=== PATIENT | male | born 1975 | race Caucasian/White ===

== ENCOUNTER 2018-02-28 04:49 | Emergency (ER) | payer SELFPAY ==
[2018-02-28] MEDS ORDERED: MORPHINE 4 MG/ML SYR ONE (05:09)
[2018-02-28] MEDS ORDERED: ONDANSETRON 4 MG/2 ML VIAL ONE (05:09)
[2018-02-28] MEDS ORDERED: KETOROLAC 30 MG/ML INJ ONE (05:09)
[2018-02-28] MEDS ORDERED: NA CHLORIDE 0.9% 1,000 ML ONE (05:10)
[2018-02-28 05:21] LABS: Absolute Lymphocytes (CBC) 2.1 K/uL (0.7-4.9); Absolute Monocytes 0.9 K/uL (0.1-1.3); Absolute Neutrophil 5.9 K/uL (1.8-8.0); Basophils % 0.5 % (0-1.3); Lymphocytes % 22.8 % (15.3-44.8); MCH 30.9 pg (27.0-35.0); MCV 90.8 fL (80-100); MPV 9.7 fL (7.6-11.3); Monocytes % 9.9 % (3.3-12.3); RBC Red Blood Cell Count 4.96 M/uL (4.33-5.43)
[2018-02-28 05:33] LABS: Albumin 3.9 g/dL (3.4-5.0); Bilirubin Direct 0.1 mg/dL (0-0.2); Bilirubin Total 0.5 mg/dL (0.2-1.0); Potassium 4.4 mmol/L (3.5-5.1); Protein, Total 7.2 g/dL (6.4-8.2)
[2018-02-28] MEDS ORDERED: LISINOPRIL 20 MG TAB ONE (05:39)
[2018-02-28] MEDS ORDERED: TAMSULOSIN 0.4 MG SR CAP ONE (05:39)
--- NOTE | 2018-02-28 05:46 | ER ---
Nurse's Notes [facility] Name: Jesse Beatty Age: 43 yrs Sex: Male : 1975 Arrival Date: 02/28/2018 Time: 04:50 Bed 8 Private MD: Diagnosis: Hydronephrosis with renal and ureteral calculous obstruction;Essential (primary) hypertension;Unspecified kidney failure Presentation: 02/28 04:57 Presenting complaint: Patient states: that he is having right lower back pain that fc radiates around to right lower abd. Positive for nausea, and decreased urination. Denies any vomiting or diarrhea. Transition of care: patient was not received from another setting of care. Onset of symptoms was February 28, 2018 at 03:00. Risk Assessment: Do you want to hurt yourself or someone else? Patient reports no desire to harm self or others. Initial Sepsis Screen: Does the patient meet any 2 criteria? No. Patient's initial sepsis screen is negative. Does the patient have a suspected source of infection? No. Patient's initial sepsis screen is negative. Care prior to arrival: None. 04:57 Method Of Arrival: Ambulatory 04:57 Acuity: SENDY 3 fc Historical: - Allergies: 05:00 No Known Allergies; fc - Home Meds: 05:00 None [Active]; fc - PMHx: 05:00 Hypertension; Kidney stones; fc - PSHx: 05:00 None; fc - Immunization history:: Last tetanus immunization: unknown, Flu vaccine is not up to date. - Social history:: Smoking status: Patient uses tobacco products, chewing tobacco, Patient/guardian denies using alcohol, street drugs. - Ebola Screening: : Patient negative for fever greater than or equal to 101.5 degrees Fahrenheit, and additional compatible Ebola Virus Disease symptoms Patient denies exposure to infectious person Patient denies travel to an Ebola-affected area in the 21 days before illness onset. - Family history:: not pertinent. Screenin:59 Abuse screen: Denies threats or abuse. Nutritional screening: No deficits noted. fc Tuberculosis screening: No symptoms or risk factors identified. Fall Risk None identified. Assessment: 05:10 General: Appears uncomfortable, Behavior is crying, restless. Pain: Complains of pain lp1 in right lower quadrant Pain radiates to groin Pain currently is 10 out of 10 on a pain scale. Quality of pain is described as sharp, stabbing. Neuro: Level of Consciousness is awake, alert, obeys commands. Cardiovascular: Patient's skin is warm and dry. Respiratory: Respiratory effort is even. GI: Abdomen is non-distended, Abdomen is tender to palpation in right lower quadrant. : Reports inability to void, pain with urination. EENT: No signs and/or symptoms were reported regarding the EENT system. Derm: Skin is intact, Skin is dry. Musculoskeletal: No deficits noted. 05:38 Reassessment: Patient returned from CT at this time; Patient states pain relief, lp1 comfortably lying in bed. 06:30 Reassessment: Patient appears in no apparent distress at this time. Patient is alert, lp1 oriented x 3, equal unlabored respirations, skin warm/dry/pink. Patient states feeling better. Patient states symptoms have improved. Vital Signs: 04:57 BP 206 / 118; Pulse 85; Resp 20; Temp 97.7(O); Pulse Ox 98% on R/A; Weight 81.65 kg fc (R); Height 5 ft. 8 in. (172.72 cm) (R); Pain 10/10; 05:36 BP 174 / 101; Pulse 62; Resp 18; Pulse Ox 97% on R/A; lp1 06:31 BP 158 / 102; Pulse 62; Resp 18; Pulse Ox 98% on R/A; lp1 04:57 Body Mass Index 27.37 (81.65 kg, 172.72 cm) fc ED Course: 04:50 Patient arrived in ED. es 04:57 Arm band placed on Patient placed in an exam room, on a stretcher. fc 04:58 Александр Ferro MD is Attending Physician. [facility] 04:59 Triage completed. fc 04:59 Patient has correct armband on for positive identification. Placed in gown. Bed in low fc position. Call light in reach. 05:00 Talia Issa, ROMA is Primary Nurse. lp1 05:00 Inserted saline lock: 20 gauge in right antecubital area, using aseptic technique. lp1 Blood collected. 05:[address] via stretcher. kw1 05:21 CT Stone Protocol In Process Unspecified. EDMS 05:23 CT completed. Patient tolerated procedure well. Patient moved back from CT. kw1 05:45 Rhonda Mahoney MD is Referral Physician. kosta 06:11 Patient moved to radiology via wheelchair. kw 06:12 X-ray completed. Patient tolerated procedure well. kw 06:30 No provider procedures requiring assistance completed. IV discontinued, No lp1 redness/swelling at site. Pressure dressing applied. Administered Medications: 05:09 Drug: NS 0.9% 1000 ml Route: IV; Rate: 1 bolus; Site: right antecubital; lp1 06:00 Follow up: IV Status: Completed infusion; IV Intake: 1000ml lp1 05:09 Drug: TORadol 30 mg Route: IVP; Site: right antecubital; lp1 05:36 Follow up: Response: Pain is decreased lp1 05:09 Drug: Zofran 4 mg Route: IVP; Site: right antecubital; lp1 05:36 Follow up: Response: No adverse reaction lp1 05:09 Drug: morphine 4 mg Route: IVP; Site: right antecubital; lp1 05:36 Follow up: Response: Pain is decreased lp1 05:36 Drug: Flomax 0.4 mg Route: PO; lp1 06:30 Follow up: Response: No adverse reaction lp1 05:36 Drug: Lisinopril 20 mg Route: PO; lp1 06:30 Follow up: Response: Blood pressure is lowered lp1 05:55 Drug: Rocephin - (cefTRIAXone) 1 grams Route: IVPB; Infused Over: 30 mins; Site: right lp1 antecubital; 06:29 Follow up: Response: No adverse reaction; IV Status: Completed infusion; IV Intake: [id number] Intake: 06:00 IV: 1000ml; Total: 1000ml. lp1 06:29 IV: 10ml; Total: 1010ml. lp1 Outcome: 05:45 Discharge ordered by . kosta 06:30 Discharged to home ambulatory, with significant other. lp1 06:30 Condition: good 06:30 Discharge instructions given to patient, significant other, Instructed on discharge instructions, follow up and referral plans. medication usage, Demonstrated understanding of instructions, follow-up care, medications, Prescriptions given X x5 06:31 Patient left the ED. lp1 Signatures: Dispatcher [employer] Александр Alvarenga MD MD cha Salyer, Edna es Chretien, Felicia, RN RN fc Elaine Oliva Laura, ROMA RN lp1 Stephania Eckert
--- NOTE | 2018-02-28 05:46 | EDPHYS ---
Physician Documentation [facility] Name: Jesse Beatty Age: 43 yrs Sex: Male : 1975 Arrival Date: 02/28/2018 Time: 04:50 Bed 8 Private MD: ED Physician Александр Ferro HPI: 02/28 05:08 This 43 yrs old Male presents to ER via Ambulatory with complaints of Back kosta Pain. 05:08 The patient presents with pain that is acute. The symptoms are located in the right mid kosta back and right low back. Onset: The symptoms/episode began/occurred just prior to arrival, this morning. The pain radiates to the right mid back and right low back. Associated signs and symptoms: Pertinent positives: abdominal pain, dysuria, nausea. The problem was sustained without known cause. Modifying factors: The patient symptoms are alleviated by nothing, the patient symptoms are aggravated by nothing. The patient has not experienced similar symptoms in the past. Historical: - Allergies: 05:00 No Known Allergies; fc - Home Meds: 05:00 None [Active]; fc - PMHx: 05:00 Hypertension; Kidney stones; fc - PSHx: 05:00 None; fc - Immunization history:: Last tetanus immunization: unknown, Flu vaccine is not up to date. - Social history:: Smoking status: Patient uses tobacco products, chewing tobacco, Patient/guardian denies using alcohol, street drugs. - Ebola Screening: : Patient negative for fever greater than or equal to 101.5 degrees Fahrenheit, and additional compatible Ebola Virus Disease symptoms Patient denies exposure to infectious person Patient denies travel to an Ebola-affected area in the 21 days before illness onset. - Family history:: not pertinent. ROS: 05:08 Constitutional: Negative for fever, chills, and weight loss, Eyes: Negative for injury, kosta pain, redness, and discharge, ENT: Negative for injury, pain, and discharge, Neck: Negative for injury, pain, and swelling, Cardiovascular: Negative for chest pain, palpitations, and edema, Respiratory: Negative for shortness of breath, cough, wheezing, and pleuritic chest pain, : Negative for injury, bleeding, discharge, and swelling, MS/Extremity: Negative for injury and deformity, Skin: Negative for injury, rash, and discoloration, Neuro: Negative for headache, weakness, numbness, tingling, and seizure, Psych: Negative for depression, anxiety, suicide ideation, homicidal ideation, and hallucinations, Allergy/Immunology: Negative for hives, rash, and allergies, Endocrine: Negative for neck swelling, polydipsia, polyuria, polyphagia, and marked weight changes, Hematologic/Lymphatic: Negative for swollen nodes, abnormal bleeding, and unusual bruising. 05:08 Abdomen/GI: Positive for abdominal pain, nausea. 05:08 Back: Positive for pain at rest, flank pain, on the right. Exam: 05:08 Constitutional: This is a well developed, well nourished patient who is awake, alert, kosta and in no acute distress. Head/Face: Normocephalic, atraumatic. Eyes: Pupils equal round and reactive to light, extra-ocular motions intact. Lids and lashes normal. Conjunctiva and sclera are non-icteric and not injected. Cornea within normal limits. Periorbital areas with no swelling, redness, or edema. ENT: Nares patent. No nasal discharge, no septal abnormalities noted. Tympanic membranes are normal and external auditory canals are clear. Oropharynx with no redness, swelling, or masses, exudates, or evidence of obstruction, uvula midline. Mucous membranes moist. Neck: Trachea midline, no thyromegaly or masses palpated, and no cervical lymphadenopathy. Supple, full range of motion without nuchal rigidity, or vertebral point tenderness. No Meningismus. Chest/axilla: Normal chest wall appearance and motion. Nontender with no deformity. No lesions are appreciated. Cardiovascular: Regular rate and rhythm with a normal S1 and S2. No gallops, murmurs, or rubs. Normal PMI, no JVD. No pulse deficits. Respiratory: Lungs have equal breath sounds bilaterally, clear to auscultation and percussion. No rales, rhonchi or wheezes noted. No increased work of breathing, no retractions or nasal flaring. Back: No spinal tenderness. No costovertebral tenderness. Full range of motion. Male : Normal genitalia with no discharge or lesions. Skin: Warm, dry with normal turgor. Normal color with no rashes, no lesions, and no evidence of cellulitis. MS/ Extremity: Pulses equal, no cyanosis. Neurovascular intact. Full, normal range of motion. Neuro: Awake and alert, GCS 15, oriented to person, place, time, and situation. Cranial nerves II-XII grossly intact. Motor strength 5/5 in all extremities. Sensory grossly intact. Cerebellar exam normal. Normal gait. Psych: Awake, alert, with orientation to person, place and time. Behavior, mood, and affect are within normal limits. 05:08 Abdomen/GI: Inspection: abdomen appears normal, Bowel sounds: normal, Liver: no appreciated palpable abnormalities, Hernia: not appreciated. Vital Signs: 04:57 BP 206 / 118; Pulse 85; Resp 20; Temp 97.7(O); Pulse Ox 98% on R/A; Weight 81.65 kg fc (R); Height 5 ft. 8 in. (172.72 cm) (R); Pain 10; 05:36 BP 174 / 101; Pulse 62; Resp 18; Pulse Ox 97% on R/A; lp1 06:31 BP 158 / 102; Pulse 62; Resp 18; Pulse Ox 98% on R/A; lp1 04:57 Body Mass Index 27.37 (81.65 kg, 172.72 cm) MDM: 04:58 Patient medically screened. [facility] 05:08 Data reviewed: vital signs, nurses notes, lab test result(s), radiologic studies, CT [facility] scan. 02/28 05:00 Order name: Basic Metabolic Panel; Complete Time: 05:44 [facility] 02/28 05:00 Order name: CBC with Diff; Complete Time: 05:44 [facility] 02/28 05:00 Order name: Hepatic Function; Complete Time: 05:44 [facility] 02/28 05:00 Order name: Lipase; Complete Time: 05:44 [facility] 02/28 05:00 Order name: CT Stone Protocol [facility] 02/28 05:44 Order name: Abdomen 1 View (KUB) XRAY [facility] 02/28 05:00 Order name: IV Saline Lock; Complete Time: 05:10 [facility] 02/28 05:00 Order name: Labs collected and sent; Complete Time: 05:10 [facility] Administered Medications: 05:09 Drug: NS 0.9% 1000 ml Route: IV; Rate: 1 bolus; Site: right antecubital; lp1 06:00 Follow up: IV Status: Completed infusion; IV Intake: 1000ml lp1 05:09 Drug: TORadol 30 mg Route: IVP; Site: right antecubital; lp1 05:36 Follow up: Response: Pain is decreased lp1 05:09 Drug: Zofran 4 mg Route: IVP; Site: right antecubital; lp1 05:36 Follow up: Response: No adverse reaction lp1 05:09 Drug: morphine 4 mg Route: IVP; Site: right antecubital; lp1 05:36 Follow up: Response: Pain is decreased lp1 05:36 Drug: Flomax 0.4 mg Route: PO; lp1 06:30 Follow up: Response: No adverse reaction lp1 05:36 Drug: Lisinopril 20 mg Route: PO; lp1 06:30 Follow up: Response: Blood pressure is lowered lp1 05:55 Drug: Rocephin - (cefTRIAXone) 1 grams Route: IVPB; Infused Over: 30 mins; Site: right lp1 antecubital; 06:29 Follow up: Response: No adverse reaction; IV Status: Completed infusion; IV Intake: [id number] Disposition: 02/28/18 05:45 Discharged to Home. Impression: Hydronephrosis with renal and ureteral calculous obstruction, Essential (primary) hypertension, Unspecified kidney failure. - Condition is Stable. - Discharge Instructions: Hypertension, Kidney Stones, Kidney Stones, [id number], Hydronephrosis, Hypertension, [id number], How to Take Your Blood Pressure, [id number], Chronic Kidney Disease, Adult, [id number]-[id number], Dietary Guidelines to Help Prevent Kidney Stones, Managing Your Hypertension. - Prescriptions for Cipro 250 mg Oral Tablet - take 1 tablet by ORAL route every 12 hours; 14 tablet. Tylenol- Codeine #3 300-30 mg Oral Tablet - take 2 tablet by ORAL route every 6 hours As needed; 30 tablet. Zofran 4 mg Oral Tablet - take 1 tablet by ORAL route every 12 hours As needed; 20 tablet. Flomax 0.4 mg Oral Capsule, Sust. Release 24 hr - take 1 capsule by ORAL route once daily 1/2 hour following the same meal each day; 30 capsule. Norvasc 5 mg Oral Tablet - take 1 tablet by ORAL route once daily; 20 tablet. - Medication Reconciliation Form, Thank You Letter, Antibiotic Education, Prescription Opioid Use, Work release form form. - Follow up: Private Physician; When: 2 - 3 days; Reason: Recheck today's complaints, Continuance of care, Re-evaluation by your physician. Follow up: Rhonda Mahoney; When: 2 - 3 days; Reason: Recheck today's complaints, Re-evaluation by your physician. - Problem is new. - Symptoms have improved. Signatures: Dispatcher [employer] [facility] Александр Ferro MD MD cha Chretien, Felicia, RN RN fc Talia Issa RN RN lp1 Corrections: (The following items were deleted from the chart) 05:14 05:01 Creatinine for Radiology+C.LAB.BRZ ordered. [facility] 06:31 05:45 02/28/2018 05:45 Discharged to Home. Impression: Hydronephrosis with renal and lp1 ureteral calculous obstruction; Essential (primary) hypertension; Unspecified kidney failure. Condition is Stable. Discharge Instructions: Hypertension, Kidney Stones, Kidney Stones, [id number]-[id number], Hydronephrosis, Hypertension, [id number]-al-[id number], How to Take Your Blood Pressure, Zpgc-[id number], Dietary Guidelines to Help Prevent Kidney Stones, Managing Your Hypertension. Prescriptions for Cipro 250 mg Oral Tablet - take 1 tablet by ORAL route every 12 hours; 14 tablet, Tylenol-Codeine #3 300-30 mg Oral Tablet - take 2 tablet by ORAL route every 6 hours As needed; 30 tablet, Zofran 4 mg Oral Tablet - take 1 tablet by ORAL route every 12 hours As needed; 20 tablet, Flomax 0.4 mg Oral Capsule, Sust. Release 24 hr - take 1 capsule by ORAL route once daily 1/2 hour following the same meal each day; 30 capsule, Lisinopril 10 mg Oral Tablet - take 1 tablet by ORAL route once daily; 20 tablet. and Forms are Medication Reconciliation Form, Thank You Letter, Antibiotic Education, Prescription Opioid Use. Follow up: Private Physician; When: 2 - 3 days; Reason: Recheck today's complaints, Continuance of care, Re-evaluation by your physician. Follow up: Rhonda Mahoney; When: 2 - 3 days; Reason: Recheck today's complaints, Re-evaluation by your physician. Problem is new. Symptoms have improved. kosta
[2018-02-28] MEDS ORDERED: CEFTRIAXONE/SWI 1gm 1 GM/10 ML SYR ONE (06:04)
[2018-02-28 06:38] VITALS: TEMP 97.7
[2018-02-28 06:40] VITALS: BP 158/102; O2SAT 98
--- NOTE | 2018-02-28 08:26 | RAD REPORT ---
EXAM DESCRIPTION: CT - Stone Protocol - 02/28/2018 6:56 am CLINICAL HISTORY: Abdominal pain. Lower abdominal pain. Urinary frequency COMPARISON: 2008 TECHNIQUE: Computed axial tomography of the abdomen pelvis was obtained without oral or IV contrast. Lack of IV and oral contrast limits evaluation of solid organs, bowel, and vessels. Coronal reformat carola images were obtained and reviewed. Preliminary report was generated by [employer] and re viewed prior to dictation All CT scans are performed using dose optimization technique as appropriate and may include automated exposure control or mA/KV adjustment according to patient size. FINDINGS: A renal calculus is not seen. Moderate right hydronephrosis is present. Mild stranding is present adjacent to the right kidney and right ureter. 4.5 millimeter calculus present within the dis arturo right ureter near the UVJ. Hounsfield unit 899. A bladder calculus is not present. A 6 millimeter low-density lesion within left lobe of the liver is too small to characterize by CT cr iteria. The, spleen, pancreas and adrenals appear grossly normal There is no evidence of diverticulitis. The appendix appears normal IMPRESSION: 4.5 millimeter calculus distal right ureter with moderate right hydronephrosis
--- NOTE | 2018-02-28 08:27 | RAD REPORT ---
EXAM DESCRIPTION: RAD - Abdomen 1 View (KUB) - 02/28/2018 6:16 am CLINICAL HISTORY: ICD N 20.0 FINDINGS: The bowel gas pattern is unremarkable. Moderate amount stool is present in the colon. 4 millimeter calcification is present within the right pelvis within the distal right ureter Phlebolith seen within the left pelvis
== END 2018-02-28 06:31 | disposition home or self-care (01) ==
LOC: ER 04:49
DX: N13.2 Hydronephrosis with renal and ureteral calculous obstruction (principal); N19 Unspecified kidney failure; I10 Essential (primary) hypertension; Z72.0 Tobacco use
CPT/HCPCS: 36415; 74018; 74176; 76377; 80048; 80076; 83690; 85025; 96361; 96365; 96375; 99284; J0696; J2405; J7030

== ENCOUNTER 2018-03-03 09:48 | Emergency (ER) | payer SELFPAY ==
[2018-03-03] MEDS ORDERED: KETOROLAC 30 MG/ML INJ ONE (10:29)
[2018-03-03] MEDS ORDERED: MORPHINE 4 MG/ML SYR ONE (10:29)
[2018-03-03] MEDS ORDERED: ONDANSETRON 4 MG/2 ML VIAL ONE (10:29)
[2018-03-03] MEDS ORDERED: NA CHLORIDE 0.9% 1,000 ML ONE (10:29)
[2018-03-03 10:48] LABS: Absolute Lymphocytes (CBC) 1.5 K/uL (0.7-4.9); Absolute Monocytes 1.2 K/uL (0.1-1.3); Absolute Neutrophil 9.4 K/uL (1.8-8.0); Basophils % 0.5 % (0-1.3); Eosinophils % 1.1 % (0-4.4); Lymphocytes % 12.3 % (15.3-44.8); MCH 31.2 pg (27.0-35.0); MCV 90.5 fL (80-100); MPV 9.5 fL (7.6-11.3); Monocytes % 9.6 % (3.3-12.3); RBC Red Blood Cell Count 4.65 M/uL (4.33-5.43)
[2018-03-03 11:11] LABS: Albumin 3.4 g/dL (3.4-5.0); Bilirubin Total 0.4 mg/dL (0.2-1.0); Potassium 4.2 mmol/L (3.5-5.1); Protein, Total 7.1 g/dL (6.4-8.2)
[2018-03-03 12:20] LABS: Urine Bacteria <20 /HPF (NONE SEEN); Urine Culture Reflex Order REFLEXED
--- NOTE | 2018-03-03 12:55 | EDPHYS ---
Physician Documentation [facility] Name: Jesse Beatty Age: 43 yrs Sex: Male : 1975 Arrival Date: 03/03/2018 Time: 09:53 Bed 19 Private MD: Angie Young H ED Physician Henrik Cortes HPI: 03/03 11:00 This 43 yrs old Male presents to ER via Ambulatory with complaints of pm1 Possible Kidney Stone. 11:00 The patient presents with abdominal pain in the right upper quadrant, right lower pm1 quadrant. Onset: The symptoms/episode began/occurred 4 day(s) ago. The symptoms radiate to Right groin. Associated signs and symptoms: Pertinent positives: nausea, vomiting, Pertinent negatives: chest pain, shortness of breath. The symptoms are described as sharp, waxing/waning. Modifying factors: The symptoms are alleviated by nothing, the symptoms are aggravated by nothing. Severity of pain: in the emergency department the pain is unchanged. The patient has experienced similar episodes in the past, a few times. The patient has been recently seen at the [facility] Emergency Department, this week, for similar complaints labs were performed, CT scan was performed, was given a prescription for antibiotics, was given a prescription for pain medications, was given a prescription for an antiemetic, DX: right distal ureteral calculous . Patient reports codeine is not working at home for the kidney stone. Historical: - Allergies: 09:56 No Known Allergies; aj1 - Home Meds: 09:56 None [Active]; aj1 - PMHx: 09:56 Hypertension; Kidney stones; enlarged heart; aj1 - PSHx: 09:56 Lithotripsy; aj1 - Immunization history:: Flu vaccine is not up to date. - Social history:: Smoking status: Patient uses tobacco products, chewing tobacco. - Ebola Screening: : Patient denies travel to an Ebola-affected area in the 21 days before illness onset. ROS: 11:00 Constitutional: Negative for fever, chills, and weight loss, Eyes: Negative for injury, pm1 pain, redness, and discharge, ENT: Negative for injury, pain, and discharge, Neck: Negative for injury, pain, and swelling, Cardiovascular: Negative for chest pain, palpitations, and edema, Respiratory: Negative for shortness of breath, cough, wheezing, and pleuritic chest pain. 11:00 Back: Negative for injury and pain, : Negative for injury, bleeding, discharge, and swelling, MS/Extremity: Negative for injury and deformity, Skin: Negative for injury, rash, and discoloration, Neuro: Negative for headache, weakness, numbness, tingling, and seizure. 11:00 Abdomen/GI: Positive for abdominal pain, Negative for nausea and vomiting. Exam: 11:00 Constitutional: This is a well developed, well nourished patient who is awake, alert, pm1 and in no acute distress. Head/Face: Normocephalic, atraumatic. Eyes: Pupils equal round and reactive to light, extra-ocular motions intact. Lids and lashes normal. Conjunctiva and sclera are non-icteric and not injected. Cornea within normal limits. Periorbital areas with no swelling, redness, or edema. ENT: Nares patent. No nasal discharge, no septal abnormalities noted. Tympanic membranes are normal and external auditory canals are clear. Oropharynx with no redness, swelling, or masses, exudates, or evidence of obstruction, uvula midline. Mucous membranes moist. Neck: Trachea midline, no thyromegaly or masses palpated, and no cervical lymphadenopathy. Supple, full range of motion without nuchal rigidity, or vertebral point tenderness. No Meningismus. Chest/axilla: Normal chest wall appearance and motion. Nontender with no deformity. No lesions are appreciated. Cardiovascular: Regular rate and rhythm with a normal S1 and S2. No gallops, murmurs, or rubs. No pulse deficits. Respiratory: Lungs have equal breath sounds bilaterally, clear to auscultation and percussion. No rales, rhonchi or wheezes noted. No increased work of breathing, no retractions or nasal flaring. Abdomen/GI: Soft, non-tender, with normal bowel sounds. No distension or tympany. No guarding or rebound. No evidence of tenderness throughout. Back: No spinal tenderness. No costovertebral tenderness. Full range of motion. Skin: Warm, dry with normal turgor. Normal color with no rashes, no lesions, and no evidence of cellulitis. MS/ Extremity: Pulses equal, no cyanosis. Neurovascular intact. Full, normal range of motion. 11:00 Neuro: Orientation: is normal, Motor: is normal, moves all fours. Vital Signs: 09:56 BP 173 / 113; Pulse 99; Resp 20; Temp 97.7; Pulse Ox 98% on R/A; Weight 83.91 kg (R); aj1 Height 5 ft. 9 in. (175.26 cm) (R); Pain 7/10; 10:30 BP 171 / 106; Pulse 85; Resp 18; Pulse Ox 100% on R/A; dh3 11:13 BP 169 / 104; Pulse 80; Resp 18; Pulse Ox 100% on R/A; dh3 12:01 Resp 16; Pain 5/10; ss 12:13 BP 159 / 98; Pulse 87; Resp 16; Pulse Ox 99% on R/A; dh3 09:56 Body Mass Index 27.32 (83.91 kg, 175.26 cm) aj1 MDM: 10:01 Patient medically screened. pm1 12:50 Physician consultation: Henrik Cortes MD regarding patient's condition, labs, Patient pm1 without any urinary symptoms. Recommends patient continue his current ABX. No need for additional imaging because pain due to right ureteral calculous. 12:53 Data reviewed: vital signs. Data interpreted: Pulse oximetry: on room air is 99 %. pm1 Interpretation: normal. Counseling: I had a detailed discussion with the patient and/or guardian regarding: the historical points, exam findings, and any diagnostic results supporting the discharge/admit diagnosis, lab results, the need for outpatient follow up, for definitive care, a urologist, to return to the emergency department if symptoms worsen or persist or if there are any questions or concerns that arise at home. 12:53 ED course: Patient currently pain free. Reports Tylenol #3 did not help at home. Will pm1 give Tramadol prescription. 03/03 10:14 Order name: CBC with Diff; Complete Time: 10:52 pm1 03/03 10:14 Order name: CMP; Complete Time: 11:22 pm1 03/03 10:14 Order name: Urine Microscopic Only; Complete Time: 12:41 pm1 03/03 12:04 Order name: Urine Dipstick--Ancillary (enter results) eb 03/03 12:22 Order name: Urine Culture EDOH 03/03 10:14 Order name: Urine Dipstick-Ancillary (obtain specimen); Complete Time: 11:56 pm1 03/03 10:14 Order name: IV Saline Lock; Complete Time: 10:28 pm1 Administered Medications: 10:32 Drug: NS 0.9% 1000 ml Route: IV; Rate: 1000 ml; Site: right antecubital; hb 12:35 Follow up: IV Status: Completed infusion; IV Intake: 1000ml em 10:32 Drug: morphine 4 mg Route: IVP; Site: right antecubital; hb 11:54 Follow up: Response: No adverse reaction; Pain is decreased ss 10:32 Drug: Zofran 4 mg Route: IVP; Site: right antecubital; hb 11:54 Follow up: Response: No adverse reaction ss 10:32 Drug: TORadol 30 mg Route: IVP; Site: right antecubital; hb 11:53 Follow up: Response: No adverse reaction; Pain is decreased ss Disposition: 16:24 Co-signature as Attending Physician, Henrik Cortes MD I agree with the assessment and kdr plan of care. Disposition: 03/03/18 12:55 Discharged to Home. Impression: Unspecified renal colic. - Condition is Stable. - Discharge Instructions: Kidney Stones, Renal Colic. - Prescriptions for Tramadol 50 mg Oral Tablet - take 1 tablet by ORAL route every 8 hours as needed; 20 tablet. - Medication Reconciliation Form, Thank You Letter, Antibiotic Education, Prescription Opioid Use form. - Follow up: Emergency Department; When: As needed; Reason: Worsening of condition. Follow up: Rhonda Mahoney MD; When: 2 - 3 days; Reason: Recheck today's complaints, Continuance of care, Re-evaluation by your physician. - Problem is new. - Symptoms have improved. Signatures: Dispatcher [employer] Yolis Roblero RN RN aj1 Henrik Cortes MD MD kdr Yoan Hampton, DRAIN CLEANER DRAIN CLEANER em Isiah Mccoy, SECURITY CONTROL ASSESSOR SECURITY CONTROL ASSESSOR pm1 Radha Vogel RN RN Manisha Fernández RN ss Corrections: (The following items were deleted from the chart) 13:06 12:55 03/03/2018 12:55 Discharged to Home. Impression: Unspecified renal colic. em Condition is Stable. Forms are Medication Reconciliation Form, Thank You Letter, Antibiotic Education, Prescription Opioid Use. Follow up: Emergency Department; When: As needed; Reason: Worsening of condition. Follow up: Rhonda Mahoney; When: 2 - 3 days; Reason: Recheck today's complaints, Continuance of care, Re-evaluation by your physician. Problem is new. Symptoms have improved. pm1 20:48 11:00 The symptoms do not radiate. pm1 pm1
--- NOTE | 2018-03-03 12:55 | ER ---
Nurse's Notes [facility] Name: Jesse Beatty Age: 43 yrs Sex: Male : 1975 Arrival Date: 03/03/2018 Time: 09:53 Bed 19 Private MD: Angie Young H Diagnosis: Unspecified renal colic Presentation: 03/03 09:54 Presenting complaint: Patient states: "I came in here on Wednesday for kidney stones, and aj1 I don't they've passed, now I'm having pain up in my belly, its down low sometimes and then its up here" Patient points to his RUQ. Reports N/V. Denies diarrhea. Denies fever. Reports urinary frequency, denies dysuria. Transition of care: patient was not received from another setting of care. Onset of symptoms was March 03, 2018. Risk Assessment: Do you want to hurt yourself or someone else? Patient reports no desire to harm self or others. Initial Sepsis Screen: Does the patient meet any 2 criteria? HR > 90 bpm. No. Patient's initial sepsis screen is negative. Does the patient have a suspected source of infection? Yes: Acute abdominal pain. Care prior to arrival: None. 09:54 Method Of Arrival: Ambulatory aj1 09:54 Acuity: SENDY 3 aj1 Triage Assessment: 09:56 General: Appears in no apparent distress. uncomfortable, Behavior is calm, cooperative, aj1 appropriate for age. Pain: Complains of pain in right upper quadrant and right lower quadrant Pain currently is 7 out of 10 on a pain scale. Neuro: Level of Consciousness is awake, alert, obeys commands. Cardiovascular: Patient's skin is warm and dry. Respiratory: Airway is patent Respiratory effort is even, unlabored, Respiratory pattern is regular, symmetrical. GI: Reports lower abdominal pain, upper abdominal pain, nausea, vomiting. : Reports urinary frequency. Historical: - Allergies: 09:56 No Known Allergies; aj1 - Home Meds: 09:56 None [Active]; aj1 - PMHx: 09:56 Hypertension; Kidney stones; enlarged heart; aj1 - PSHx: 09:56 Lithotripsy; aj1 - Immunization history:: Flu vaccine is not up to date. - Social history:: Smoking status: Patient uses tobacco products, chewing tobacco. - Ebola Screening: : Patient denies travel to an Ebola-affected area in the 21 days before illness onset. Screenin:45 Abuse screen: Denies threats or abuse. Denies injuries from another. Nutritional ss screening: No deficits noted. Tuberculosis screening: Never had TB. Fall Risk None identified. Assessment: 10:45 General: Appears in no apparent distress. comfortable, Behavior is calm, cooperative, ss Denies fever, feeling ill, fatigue, chills. Pain: Complains of pain in right lower quadrant and right upper quadrant Pain currently is 5 out of 10 on a pain scale. at worst was 8 out of 10 on a pain scale. Quality of pain is described as sharp, Is intermittent. Neuro: Level of Consciousness is awake, alert, obeys commands, Oriented to person, place, time, situation. Respiratory: Airway is patent Respiratory effort is even, unlabored, Respiratory pattern is regular, symmetrical, Breath sounds are clear bilaterally. GI: Abdomen is non-distended, Bowel sounds present X 4 quads. Abd is soft X 4 quads Patient currently denies diarrhea, nausea, vomiting. : Reports decreased urinary output x 4 days. EENT: Nares are clear Oral mucosa is moist. Throat is clear. Derm: Skin is pink, warm \\T\\ dry. normal. Musculoskeletal: Circulation, motion, and sensation intact. Range of motion: intact in all extremities, Swelling absent. 12:04 Reassessment: UMIC collected and sent. Pt ambulated to restroom with steady gait and is ss now back in exam bed, appears comfortable. Awaiting UMIC results/ disposition. 12:04 Reassessment: Pt reports he has not taken his BP medication today, but will when he ss gets home. 12:35 Reassessment: Patient appears in no apparent distress at this time. Patient and/or em family updated on plan of care and expected duration. Pain level reassessed. Patient is alert, oriented x 3, equal unlabored respirations, skin warm/dry/pink. Vital Signs: 09:56 BP 173 / 113; Pulse 99; Resp 20; Temp 97.7; Pulse Ox 98% on R/A; Weight 83.91 kg (R); aj1 Height 5 ft. 9 in. (175.26 cm) (R); Pain 7/10; 10:30 BP 171 / 106; Pulse 85; Resp 18; Pulse Ox 100% on R/A; dh3 11:13 BP 169 / 104; Pulse 80; Resp 18; Pulse Ox 100% on R/A; dh3 12:01 Resp 16; Pain 5/10; ss 12:13 BP 159 / 98; Pulse 87; Resp 16; Pulse Ox 99% on R/A; dh3 09:56 Body Mass Index 27.32 (83.91 kg, 175.26 cm) aj1 ED Course: 09:53 Patient arrived in ED. sb2 09:53 Angie Young DO is Private Physician. sb2 09:56 Triage completed. aj1 09:56 Arm band placed on Patient placed in an exam room. aj1 09:58 Isiah Mccoy NP is PHCP. pm1 09:58 Henrik Cortes MD is Attending Physician. pm1 10:14 Vy Torres, ROMA is Primary Nurse. rb1 10:22 Initial lab(s) drawn, by ny. Inserted saline lock: 20 gauge in right forearm, using dh3 aseptic technique. Blood collected. 10:45 Patient has correct armband on for positive identification. Bed in low position. Call ss light in reach. 12:54 Rhonda Mahoney MD is Referral Physician. pm1 13:05 No provider procedures requiring assistance completed. IV discontinued, intact, em bleeding controlled, No redness/swelling at site. Pressure dressing applied. Administered Medications: 10:32 Drug: NS 0.9% 1000 ml Route: IV; Rate: 1000 ml; Site: right antecubital; hb 12:35 Follow up: IV Status: Completed infusion; IV Intake: 1000ml em 10:32 Drug: morphine 4 mg Route: IVP; Site: right antecubital; hb 11:54 Follow up: Response: No adverse reaction; Pain is decreased ss 10:32 Drug: Zofran 4 mg Route: IVP; Site: right antecubital; hb 11:54 Follow up: Response: No adverse reaction ss 10:32 Drug: TORadol 30 mg Route: IVP; Site: right antecubital; hb 11:53 Follow up: Response: No adverse reaction; Pain is decreased ss Intake: 12:35 IV: 1000ml; Total: 1000ml. em Outcome: 12:55 Discharge ordered by . pm1 13:05 Discharged to home ambulatory. em 13:05 Condition: good 13:05 Discharge instructions given to patient, Instructed on discharge instructions, follow up and referral plans. medication usage, Demonstrated understanding of instructions, follow-up care, medications, Prescriptions given X 1. 13:06 Patient left the ED. em Signatures: Yolis Alejo, RN RN aj1 Yoan Hampton, CAD CAM PROGRAMMER CAD CAM PROGRAMMER em Manisha Levi RN RN ss Vy Torres RN RN rb1 Isiah Mccoy NP RETAIL TRAINING MANAGER pm1 Radha Vogel RN RN Nisa Dozier 3 Jo Garcia 2
[2018-03-03 13:25] VITALS: TEMP 97.7
[2018-03-03 13:30] VITALS: BP 159/98; O2SAT 99
[2018-03-03 17:55] LABS: Urine Blood 2+ (NEG); Urine Glucose NEGATIVE (NEG); Urine Protein NEGATIVE (NEG); Urine Specific Gravity 1.025 (1.005-1.030); Urine pH 5.5 (5.0-7.0)
== END 2018-03-03 13:06 | disposition home or self-care (01) ==
LOC: ER 09:48
DX: N23 Unspecified renal colic (principal); I10 Essential (primary) hypertension; Z72.0 Tobacco use
CPT/HCPCS: 36415; 80053; 81003; 81015; 85025; 87086; 87088; 96361; 96374; 96375; 99284; J2405; J7030

== ENCOUNTER 2020-10-04 20:17 | Emergency (ER) | payer OTHER, SELFPAY ==
[2020-10-04] MEDS ORDERED: IBUPROFEN 400 MG TAB ONE (21:14)
--- NOTE | 2020-10-04 22:06 | ER ---
Nurse's Notes [facility] Name: Jesse Beatty Age: 45 yrs Sex: Male : 1975 Arrival Date: 10/04/2020 Time: 20:19 Bed 26 Private MD: Diagnosis: Sprain of ankle-right Presentation: 10/04 20:48 Chief complaint: Patient states: I was going to jump into the pool from the top of my vg1 roof and I lost my footing and fell on fence then to the concrete and landed on Right Ankle. Denies hitting head. Coronavirus screen: Client denies travel out of the [place] in the last 14 days. Ebola Screen: Patient negative for fever greater than or equal to 101.5 degrees Fahrenheit, and additional compatible Ebola Virus Disease symptoms. Initial Sepsis Screen: Does the patient meet any 2 criteria? No. Patient's initial sepsis screen is negative. Does the patient have a suspected source of infection? No. Patient's initial sepsis screen is negative. Risk Assessment: Do you want to hurt yourself or someone else? Patient reports no desire to harm self or others. Onset of symptoms was October 04, 2020. 20:48 Method Of Arrival: Wheelchair vg1 20:48 Acuity: SENDY 4 vg1 Triage Assessment: 20:51 General: Appears in no apparent distress. uncomfortable, Behavior is calm, cooperative. vg1 Pain: Complains of pain in Right Ankle. Historical: - Allergies: 20:51 No Known Allergies; vg1 - Home Meds: 20:51 None [Active]; vg1 - PMHx: 20:51 Enlarged Heart; Hypertension; Kidney stones; vg1 - Immunization history:: Adult Immunizations up to date. - Social history:: Smoking status: Patient denies any tobacco usage or history of. Screenin:31 Abuse screen: Denies threats or abuse. Denies injuries from another. Nutritional aj1 screening: No deficits noted. Tuberculosis screening: No symptoms or risk factors identified. Fall Risk None identified. Assessment: 21:40 General: Appears in no apparent distress. uncomfortable, Behavior is calm, cooperative, aj1 appropriate for age. Pain: Complains of pain in right ankle Pain does not radiate. Pain currently is 9 out of 10 on a pain scale. Neuro: Level of Consciousness is awake, alert, obeys commands, Oriented to person, place, time, situation. Cardiovascular: Patient's skin is warm and dry. Respiratory: Airway is patent Respiratory effort is even, unlabored, Respiratory pattern is regular, symmetrical. GI: No signs and/or symptoms were reported involving the gastrointestinal system. : No signs and/or symptoms were reported regarding the genitourinary system. EENT: No signs and/or symptoms were reported regarding the EENT system. Derm: No signs and/or symptoms reported regarding the dermatologic system. Skin is pink, warm \T\ dry. normal. Musculoskeletal: Range of motion: limited in right ankle. Vital Signs: 20:48 BP 146 / 109; Pulse 84; Resp 18; Temp 98.6; Pulse Ox 100% ; Weight 86.18 kg; Height 5 vg1 ft. 7 in. (170.18 cm); Pain 9/10; 20:48 Body Mass Index 29.76 (86.18 kg, 170.18 cm) vg1 ED Course: 20:19 Patient arrived in ED. as 20:50 Triage completed. vg1 20:51 Arm band placed on. vg1 21:33 XRAY Ankle RIGHT 3 view In Process Unspecified. EDMS 21:47 Yolis Alejo, ROMA is Primary Nurse. aj1 21:57 Александр Howe PA is PHCP. cp 21:57 Philip Hightower MD is Attending Physician. cp 22:05 Kelechi Dewey MD is Referral Physician. cp 22:31 Patient has correct armband on for positive identification. Bed in low position. Call aj1 light in reach. Side rails up X 1. 22:31 No provider procedures requiring assistance completed. Patient did not have IV access aj1 during this emergency room visit. Administered Medications: 20:55 Drug: Ibuprofen 800 mg Route: PO; vg1 22:34 Follow up: Response: No adverse reaction aj1 22:10 Drug: Hydrocodone-Acetaminophen (7.5 mg-325 mg) 1 tabs Route: PO; aj1 22:34 Follow up: Response: No adverse reaction aj1 Outcome: 22:05 Discharge ordered by . cp 22:33 Discharged to home with crutches, with family. aj1 22:33 Condition: good 22:33 Discharge instructions given to patient, Instructed on discharge instructions, follow up and referral plans. medication usage, Demonstrated understanding of instructions, follow-up care, medications, Prescriptions given X 1. 22:34 Patient left the ED. aj1 Signatures: Dispatcher [employer] EDYolis Mcneal, RN RN aj1 Maggi Frias Corey, PA PA cp Garcia, Victoria, RN RN vg1 Corrections: (The following items were deleted from the chart) 22:31 General: Appears in no apparent distress. uncomfortable, Behavior is calm, aj1 cooperative, appropriate for age, aj1 22:31 Pain: Complains of pain in right ankle Pain does not radiate. Pain currently is 9 aj1 out of 10 on a pain scale. aj1 22:31 Neuro: Level of Consciousness is awake, alert, obeys commands, Oriented to aj1 person, place, time, situation, aj1 22:31 Cardiovascular: Patient's skin is warm and dry. aj1 aj1 22:31 Respiratory: Airway is patent Respiratory effort is even, unlabored, Respiratory aj1 pattern is regular, symmetrical, aj1 22:31 GI: No signs and/or symptoms were reported involving the gastrointestinal system. aj1 aj1 22:31 : No signs and/or symptoms were reported regarding the genitourinary system. aj1aj1 22:31 EENT: No signs and/or symptoms were reported regarding the EENT system. aj1 aj1 22:31 Derm: No signs and/or symptoms reported regarding the dermatologic system. Skin aj1 is pink, warm \T\ dry. normal, aj1 22:31 Musculoskeletal: Range of motion: limited in right ankle aj1 aj1
--- NOTE | 2020-10-04 22:06 | EDPHYS ---
Physician Documentation [facility] Name: Jesse Beatty Age: 45 yrs Sex: Male : 1975 Arrival Date: 10/04/2020 Time: 20:19 Bed 26 Private MD: ED Physician Philip Hightower HPI: 10/04 22:00 This 45 yrs old Male presents to ER via Wheelchair with complaints of Fall cp Injury - 12 ft, Ankle Injury. 22:00 The patient presents with an injury, pain, that is acute. The complaints affect the cp right ankle. Onset: The symptoms/episode began/occurred today. Context: resulted from from roof while attempting to jump into pool. Patient reports he believes he landed onto foot and ankle, denies any other injuries. Historical: - Allergies: 20:51 No Known Allergies; vg1 - Home Meds: 20:51 None [Active]; vg1 - PMHx: 20:51 Enlarged Heart; Hypertension; Kidney stones; vg1 - Immunization history:: Adult Immunizations up to date. - Social history:: Smoking status: Patient denies any tobacco usage or history of. ROS: 22:02 Constitutional: Negative for body aches, chills, fever, poor PO intake. cp 22:02 Eyes: Negative for injury, pain, redness, and discharge. cp 22:02 Neck: Negative for pain with movement, pain at rest, stiffness. 22:02 Cardiovascular: Negative for chest pain. 22:02 Respiratory: Negative for cough, shortness of breath, wheezing. 22:02 Abdomen/GI: Negative for abdominal pain, nausea, vomiting, and diarrhea. 22:02 Back: Negative for pain at rest, pain with movement, radiated pain. 22:02 MS/extremity: Positive for pain, swelling, tenderness, of the right ankle, Negative for deformity, paresthesias. 22:02 Neuro: Negative for altered mental status, loss of consciousness, syncope, weakness. 22:02 All other systems are negative. Exam: 22:03 Constitutional: The patient appears in no acute distress, alert, awake, non-toxic, well cp developed, well nourished. 22:03 Head/Face: Normocephalic, atraumatic. cp 22:03 Chest/axilla: Inspection: normal. 22:03 Cardiovascular: Rate: normal. 22:03 Respiratory: the patient does not display signs of respiratory distress, Respirations: normal, no use of accessory muscles, no retractions, labored breathing, is not present. 22:03 Abdomen/GI: Inspection: abdomen appears normal, Palpation: abdomen is soft and non-tender, in all quadrants. 22:03 Back: pain, is absent, ROM is normal, vertebral tenderness, is not appreciated. 22:03 Musculoskeletal/extremity: Extremities: grossly normal except: noted in the lateral malleolus and heel right ankle and foot: pain, tenderness, ROM: limited passive range of motion due to pain, in the right ankle, Pulses: noted to be 2+ in the right dorsalis pedis artery, Sensation intact. Achilles tendon palpated and intact, no pain palpated at proximal right fibula and/or base of fifth right metatarsal. Vital Signs: 20:48 BP 146 / 109; Pulse 84; Resp 18; Temp 98.6; Pulse Ox 100% ; Weight 86.18 kg; Height 5 vg1 ft. 7 in. (170.18 cm); Pain 9/10; 20:48 Body Mass Index 29.76 (86.18 kg, 170.18 cm) vg1 Procedures: 22:35 Splinting: Splint applied to right ankle using walking boot. applied by nurse. Examined cp by me, post splint application: neurovascular intact, Patient tolerated well. MDM: 22:00 Differential diagnosis: fracture, sprain. cp 22:02 Patient medically screened. cp 22:05 Data reviewed: vital signs, nurses notes, radiologic studies, plain films, and as a cp result, I will discharge patient. 22:05 Test interpretation: by ED physician or midlevel provider: plain radiologic studies. cp Counseling: I had a detailed discussion with the patient and/or guardian regarding: the historical points, exam findings, and any diagnostic results supporting the discharge/admit diagnosis, radiology results, to return to the emergency department if symptoms worsen or persist or if there are any questions or concerns that arise at home. Response to treatment: the patient's symptoms have markedly improved after treatment. ED course: VSS. Xrays of right ankle negative for fracture. 10/05 13:53 ED course: Dr. Olivier called today to notify of calcaneal fracture, nondisplaced. rn called patient and is doing well, notified to come back for walking boot as sent home with air cast, and need for ortho f/u.. 10/04 20:53 Order name: XRAY Ankle RIGHT 3 view; Complete Time: 13:48 cp 10/04 22:02 Order name: Walking boot; Complete Time: 22:30 cp 10/04 22:02 Order name: Crutches; Complete Time: 22:30 cp Administered Medications: 10/04 20:55 Drug: Ibuprofen 800 mg Route: PO; 1 22:34 Follow up: Response: No adverse reaction aj1 22:10 Drug: Hydrocodone-Acetaminophen (7.5 mg-325 mg) 1 tabs Route: PO; aj1 22:34 Follow up: Response: No adverse reaction aj1 Disposition: 10/05 06:22 Co-signature as Attending Physician, Philip Hightower MD. [email or web address] Disposition: 10/04/20 22:05 Discharged to Home. Impression: Sprain of ankle - right. - Condition is Stable. - Discharge Instructions: Ankle Sprain. - Prescriptions for Diclofenac Sodium 75 mg Oral Tablet Sustained Release - take 1 tablet by ORAL route 2 times per day; 30 tablet. - Medication Reconciliation Form, Thank You Letter, Antibiotic Education, Prescription Opioid Use form. - Follow up: Kelechi Dewey MD; When: 1 week; Reason: Recheck today's complaints. - Problem is new. - Symptoms have improved. Signatures: Dispatcher [employer] EDYolis Mcneal RN RN aj1 Chris Bush MD MD rn Page, Corey, PA PA cp Garcia, Victoria, RN RN vg1 Philip Hightower MD MD 7 Corrections: (The following items were deleted from the chart) 10/04 22:34 22:05 10/04/2020 22:05 Discharged to Home. Impression: Sprain of ankle - right. aj1 Condition is Stable. Forms are Medication Reconciliation Form, Thank You Letter, Antibiotic Education, Prescription Opioid Use. Follow up: Kelechi Dewey; When: 1 week; Reason: Recheck today's complaints. Problem is new. Symptoms have improved. cp
[2020-10-04] MEDS ORDERED: HYDROCODONE/APAP 7.5/325 MG TAB ONE (22:28)
[2020-10-04 22:40] VITALS: BP 146/109; TEMP 98.6; O2SAT 100
--- NOTE | 2020-10-05 08:55 | RAD REPORT ---
EXAM DESCRIPTION: RAD - Ankle Right 3 View - 10/04/2020 9:33 pm CLINICAL HISTORY: PAIN, fall with trauma to the ankle COMPARISON: No comparisons FINDINGS: Oblique fracture to the calcaneus seen. No distraction or angulation. Main fracture line e xtends from the subtalar joint space posteriorly to near the plantar tendon attachment site. No fract ure of the distal tibia or fibula confirmed. Ankle mortise is maintained. No talus fracture confirmed . Tarsal bones and tarsal - metatarsal articulations are too poorly visualized to allow assessment. L ateral soft tissue swelling is present. No foreign body seen. IMPRESSION: Calcaneus fracture with no measurable distraction or angulation deformity. Soft tissue swelling around the ankle joint is seen but no additional fracture can be confirmed.
== END 2020-10-04 22:34 | disposition home or self-care (01) ==
LOC: ER 20:17
DX: S93.401A Sprain of unspecified ligament of right ankle, initial encounter (principal); S92.001A Unspecified fracture of right calcaneus, initial encounter for closed fracture; I10 Essential (primary) hypertension; W13.2XXA Fall from, out of or through roof, initial encounter
CPT/HCPCS: 99283

== ENCOUNTER 2021-02-11 01:17 | Emergency (ER) | payer OTHER ==
--- NOTE | 2021-02-11 02:10 | ER ---
Nurse's Notes [facility] Name: Jesse Beatty Age: 46 yrs Sex: Male : 1975 Arrival Date: 02/11/2021 Time: 01:20 Bed 9 Private MD: Diagnosis: Allergic contact dermatitis due to plants, except food;Allergic contact dermatitis due to other agents Presentation: 02/11 01:27 Chief complaint: Patient states: States last got into poison kayce and has been wg trying to control the reaction on his own without success. Currently pt has irritation to bilat arms, legs, abd and chest. Pt denies SOB, CP, N/V/D or any other symptoms. Pt states he often needs a steroid to help address the reaction. Coronavirus screen: Vaccine status: Patient reports being unvaccinated. Ebola Screen: Patient negative for fever greater than or equal to 101.5 degrees Fahrenheit, and additional compatible Ebola Virus Disease symptoms Patient denies exposure to infectious person. Patient denies travel to an Ebola-affected area in the 21 days before illness onset. No symptoms or risks identified at this time. Onset: The symptoms/episode began/occurred gradually. Anaphylaxis evaluation, no signs or symptoms of anaphylaxis were noted. Initial Sepsis Screen: Does the patient meet any 2 criteria? No. Patient's initial sepsis screen is negative. Does the patient have a suspected source of infection? No. Patient's initial sepsis screen is negative. Risk Assessment: Do you want to hurt yourself or someone else? Patient reports no desire to harm self or others. Onset of symptoms was February 06, 2021. 01:27 Method Of Arrival: Ambulatory 01:27 Acuity: SENDY 4 Triage Assessment: 01:30 General: Appears uncomfortable, well groomed, well developed, Behavior is cooperative, wg appropriate for age, restless. Pain: Denies pain. Derm: Skin is pink, warm \T\ dry. red, Rash noted that is itchy, red, raised. Historical: - Allergies: : No Known Allergies; wg - Home Meds: :30 None [Active]; wg - PMHx: 02:20 Enlarged Heart; Hypertension; Kidney stones; dc2 - Immunization history:: Adult Immunizations up to date. - Social history:: Smoking status: Patient reports use of chewing tobacco. Screenin:19 Abuse screen: Denies threats or abuse. Denies injuries from another. Nutritional dc2 screening: No deficits noted. Tuberculosis screening: No symptoms or risk factors identified. Never had TB. Fall Risk None identified. No fall in past 12 months (0 pts). No secondary diagnosis (0 pts). No IV (0 pts). Ambulatory Aid- None/Bed Rest/Nurse Assist (0 pts). Gait- Normal/Bed Rest/Wheelchair (0 pts) Mental Status- Oriented to own ability (0 pts). Total Grier Fall Scale indicates No Risk (0-24 pts). Assessment: 02:19 Respiratory: Airway is patent Breath sounds are clear bilaterally. dc2 02:21 Respiratory: No deficits noted. Respiratory effort is even, unlabored, Denies shortness dc2 of breath. Vital Signs: 01:27 BP 158 / 88; Pulse 92; Resp 18; Temp 97.8; Pulse Ox 100% on R/A; Weight 92.08 kg; wg Height 5 ft. 7 in. (170.18 cm); Pain 0/10; 01:27 Body Mass Index 31.79 (92.08 kg, 170.18 cm) ED Course: 01:20 Patient arrived in ED. 01:27 Alfa Urena, RN is Primary Nurse. 01:30 Triage completed. 01:30 Arm band placed on. 01:34 Александр Ferro MD is Attending Physician. [facility] 02:20 Patient has correct armband on for positive identification. Call light in reach. dc2 02:20 No provider procedures requiring assistance completed. dc2 02:20 Patient did not have IV access during this emergency room visit. dc2 Administered Medications: 02:21 Drug: Decadron (dexamethasone) 10 mg Route: IM; Site: right deltoid; dc2 02:21 Drug: Pepcid (famotidine) 40 mg Route: PO; dc2 02:21 Drug: Benadryl (diphenhydrAMINE) 50 mg Route: PO; dc2 Outcome: 02:09 Discharge ordered by . [facility] 02:30 Discharged to home ambulatory. 3 02:30 Condition: good 02:30 Discharge instructions given to patient, Instructed on discharge instructions, medication usage, Demonstrated understanding of instructions, medications, Prescriptions given X 3. 02:31 Patient left the ED. 3 Signatures: Александр Ferro MD MD cha Marsh, Wendy wm Hardee, Latisha, RN RN lh3 Alfa Urena, Rosi Balbuena RN RN ky2
--- NOTE | 2021-02-11 02:10 | EDPHYS ---
Physician Documentation [facility] Name: Jesse Beatty Age: 46 yrs Sex: Male : 1975 Arrival Date: 02/11/2021 Time: 01:20 Bed 9 Private MD: ED Physician Александр Ferro HPI: 02/11 02:03 This 46 yrs old Male presents to ER via Ambulatory with complaints of kosta Allergic Reaction. 02:03 The patient presents with rash, redness of skin. Onset: The symptoms/episode kosta began/occurred 4 day(s) ago. Associated signs and symptoms: Pertinent positives: swelling. Possible causes: poison moni. At home the patient or guardian has treated the symptoms with Benadryl. Severity of symptoms: At their worst the symptoms were moderate in the emergency department the symptoms are unchanged. The patient has experienced similar episodes in the past, several times. Historical: - Allergies: 01:30 No Known Allergies; wg - Home Meds: 01:30 None [Active]; wg - PMHx: 02:20 Enlarged Heart; Hypertension; Kidney stones; dc2 - Immunization history:: Adult Immunizations up to date. - Social history:: Smoking status: Patient reports use of chewing tobacco. ROS: 02:07 Constitutional: Negative for fever, chills, and weight loss, Eyes: Negative for injury, kosta pain, redness, and discharge, ENT: Negative for injury, pain, and discharge, Neck: Negative for injury, pain, and swelling, Cardiovascular: Negative for chest pain, palpitations, and edema, Respiratory: Negative for shortness of breath, cough, wheezing, and pleuritic chest pain, Abdomen/GI: Negative for abdominal pain, nausea, vomiting, diarrhea, and constipation, Back: Negative for injury and pain, : Negative for injury, bleeding, discharge, and swelling, MS/Extremity: Negative for injury and deformity, Neuro: Negative for headache, weakness, numbness, tingling, and seizure, Psych: Negative for depression, anxiety, suicide ideation, homicidal ideation, and hallucinations, Allergy/Immunology: Negative for hives, rash, and allergies, Endocrine: Negative for neck swelling, polydipsia, polyuria, polyphagia, and marked weight changes, Hematologic/Lymphatic: Negative for swollen nodes, abnormal bleeding, and unusual bruising. 02:07 Skin: Positive for rash, diffusely. Exam: 02:07 Constitutional: This is a well developed, well nourished patient who is awake, alert, kosta and in no acute distress. Head/Face: Normocephalic, atraumatic. Eyes: Pupils equal round and reactive to light, extra-ocular motions intact. Lids and lashes normal. Conjunctiva and sclera are non-icteric and not injected. Cornea within normal limits. Periorbital areas with no swelling, redness, or edema. ENT: Nares patent. No nasal discharge, no septal abnormalities noted. Tympanic membranes are normal and external auditory canals are clear. Oropharynx with no redness, swelling, or masses, exudates, or evidence of obstruction, uvula midline. Mucous membranes moist. Neck: Trachea midline, no thyromegaly or masses palpated, and no cervical lymphadenopathy. Supple, full range of motion without nuchal rigidity, or vertebral point tenderness. No Meningismus. Chest/axilla: Normal chest wall appearance and motion. Nontender with no deformity. No lesions are appreciated. Cardiovascular: Regular rate and rhythm with a normal S1 and S2. No gallops, murmurs, or rubs. Normal PMI, no JVD. No pulse deficits. Respiratory: Lungs have equal breath sounds bilaterally, clear to auscultation and percussion. No rales, rhonchi or wheezes noted. No increased work of breathing, no retractions or nasal flaring. Abdomen/GI: Soft, non-tender, with normal bowel sounds. No distension or tympany. No guarding or rebound. No evidence of tenderness throughout. Back: No spinal tenderness. No costovertebral tenderness. Full range of motion. Male : Normal genitalia with no discharge or lesions. MS/ Extremity: Pulses equal, no cyanosis. Neurovascular intact. Full, normal range of motion. Neuro: Awake and alert, GCS 15, oriented to person, place, time, and situation. Cranial nerves II-XII grossly intact. Motor strength 5/5 in all extremities. Sensory grossly intact. Cerebellar exam normal. Normal gait. Psych: Awake, alert, with orientation to person, place and time. Behavior, mood, and affect are within normal limits. 02:07 Skin: Appearance: Color: erythematous, Temperature: normal temperature, Moisture: normal moisture, petechiae, not noted, ecchymosis, not noted, flushing, that are mild, diaphoresis is not appreciated, swelling, is not appreciated, rash a moderate rash is noted, rash can be described as erythematous, raised, contact dermatitis. Vital Signs: 01:27 BP 158 / 88; Pulse 92; Resp 18; Temp 97.8; Pulse Ox 100% on R/A; Weight 92.08 kg; wg Height 5 ft. 7 in. (170.18 cm); Pain 0/10; 01:27 Body Mass Index 31.79 (92.08 kg, 170.18 cm) wg MDM: 01:34 Patient medically screened. kosta 02:08 Data reviewed: vital signs, nurses notes. kosta 02:11 Differential diagnosis: anaphylaxis, angioedema, bronchospasm, Status Asthmaticus kosta urticaria. Data interpreted: table worker: not applicable for this patient encounter. rate is 92 beats/min, rhythm is regular, Pulse oximetry: on room air is 100 %. Counseling: I had a detailed discussion with the patient and/or guardian regarding: the historical points, exam findings, and any diagnostic results supporting the discharge/admit diagnosis, the need for outpatient follow up, for definitive care, an allergy/health benefits specialist, a family practitioner. Administered Medications: 02:21 Drug: Decadron (dexamethasone) 10 mg Route: IM; Site: right deltoid; dc2 02:21 Drug: Pepcid (famotidine) 40 mg Route: PO; dc2 02:21 Drug: Benadryl (diphenhydrAMINE) 50 mg Route: PO; dc2 Disposition Summary: 02/11/21 02:09 Discharge Ordered Location: Home kosta Problem: new kosta Symptoms: have improved kosta Condition: Stable kosta Diagnosis - Allergic contact dermatitis due to plants, except food kosta - Allergic contact dermatitis due to other agents kosta Followup: kosta - With: Private Physician - When: 2 - 3 days - Reason: Recheck today's complaints, Continuance of care, Re-evaluation by your physician Discharge Instructions: - Discharge Summary Sheet kosta - Contact Dermatitis kosta - Poison Moni Dermatitis kosta - Poison Markle Dermatitis kosta - Rash, Adult oksta - Rash, Adult, [id number] kosta - Poison Moni Dermatitis, [id number] kosta - Contact Dermatitis, [id number] kosta Forms: - Medication Reconciliation Form kosta - Thank You Letter kosta - Antibiotic Education kosta - Prescription Opioid Use kosta Prescriptions: - dexamethasone 2 mg Oral tablet - take 1 tablet by ORAL route 3 times per day; 15 tablet; Refills: 0, Product [facility] Selection Permitted - Benadryl 25 mg Oral Capsule - take 2 capsule by ORAL route every 6 hours As needed; 36 tablet; Refills: 0, [facility] Product Selection Permitted - Pepcid 20 mg Oral Tablet - take 1 tablet by ORAL route every 12 hours for 15 days; 30 tablet; Refills: 0, [facility] Product Selection Permitted Signatures: Александр Ferro MD MD cha Gamba, Liam, ROMA Rosi Rawls RN RN dc2
[2021-02-11 02:42] VITALS: BP 158/88; TEMP 97.8; O2SAT 100
[2021-02-11] MEDS ORDERED: dexAMETHasone 10 MG/ML VIAL ONE (02:43)
[2021-02-11] MEDS ORDERED: DIPHENHYDRAMINE 25 MG TAB/CAP ONE (02:43)
[2021-02-11] MEDS ORDERED: FAMOTIDINE 20 MG TAB ONE (02:44)
== END 2021-02-11 02:31 | disposition home or self-care (01) ==
LOC: ER 01:17
DX: L23.7 Allergic contact dermatitis due to plants, except food (principal); L23.89 Allergic contact dermatitis due to other agents; I10 Essential (primary) hypertension; F17.220 Nicotine dependence, chewing tobacco, uncomplicated
CPT/HCPCS: 96372; 99283; J1100

== ENCOUNTER 2024-05-09 08:07 | Emergency (ER) | payer OTHER ==
--- OUTSIDE RECORDS SUMMARY | 2024-05-09 08:11 | XMS REPORT | Continuity of Care Document ---
Author Name Unknown Address [address] [facility] [address] [place], [place] [id number] [place] [address] thconnect Address [address] [facility] [address] [place] [address] Care Team Providers Care Mixer Attendant Name Role Phone SYED KENYON Attending Clinician Unavailable DEYSI ASHRAF Attending Clinician Unavaila SUNIL Kirby Attending Clinician Unavailable LAB90 Attending Clinician Unavailable Payers Payer Name Policy Type Policy Number Effective Date Expirati on Date Source [employer] [facility] [employer] [address] [place] [address] ON/OFF 9 [id number] 2023 00:00:00 Problems Condition Name Condition Details Condition Category Status Onset Date Resolution Date Last Treatment Date Treating Clinician Comments Source Rotator cuff dysfunctio n, left Rotator cuff dysfunctio n, left Disease Active 2022-04 00:00: 00 Nati riley Chronic left shoulder pain Chronic left shoulder pain Disease Active 2022-04 0 00:00: 00 Nati riley HTN (hypertens ion) HTN (hypertens ion) Disease Active 12-22 00:00: 00 Nati Ojedaa rosemary History of kidney stones History of kidney stones Disease Active 12-22 00:00: 00 Nati Ojedaa rosemary Social History Social Habit Start Date Stop Date Quantity Comments Source Sexual orientation 2023-01-12 15:34:34 Heterosexual (finding) Nati Gonazlez - External Gender identity Sigrid Gonzalez - External History of tobacco use Chews Tobacco Nati Gonzalez - External Alcohol intake 2023-02-24 00:00:00 2023-02-24 00:00:00 Ex-drinker (finding) Nati Gonzalez - External History of Social function 2023-01-11 00:00:00 2023-01-11 00:00:00 Nati Gonzalez - External Tobacco use and exposure 2022-12-22 00:00:00 2022-12-22 00:00:00 User of smokeless tobacco Nati Gonzalez - External Education 2022-12-22 00:00:00 2022-12-22 00:00:00 16 Nati Carlos - External Sex Assigned At 1975 00:00:00 1975 00:00:00 M Nati Senancie - External Smoking Status Start Date Stop Date Source Never smoked tobacco Nati Gonzalez - External Medications Ordered Medication Name Filled Medication Name Start Date Stop Date Current Medication? Ordering Clinician Indication Dosage Frequency Signature (SIG) Comments Components Source Methylpredn isolone Acetate (Depo-Medro l) 40 mg/ml - Physician Administere d (J1030) 2022-04 14:15: 00 02-24 21:00 :00 No [id number] 9104 40mg Nati riley Tizanidine HCl 2 MG oral Tablet 2022-04 00:00: 00 Yes [id number] 2mg QD TAKE 1 TABLET BY MOUTH EVERY DAY AT NIGHT NEEDED Nati riley LISINOPRIL- HCTZ 20-12.5 MG oral Tablet 2022-04 0- 00:00: 00 Yes [id number] 2{tbl} Take 2 tablets by mouth daily. Nati riley Meloxicam 15 MG oral Tablet 01-19 00:00: 00 02-19 04:59 :00 No [id number] 15mg Take 1 tablet (15 mg total) by mouth daily Take daily with food for 1 week. Then, as needed. Nati riley Tizanidine HCl 2 MG oral Tablet 01-14 00:00: 00 Yes [id number] 2mg QD TAKE 1 TABLET BY MOUTH NIGHTLY NEEDED. Nati riley Diclofenac Sodium 75 MG oral Tablet Delayed Response 12-22 00:00: 00 Yes [id number] 75mg Q.5D Take 1 tablet (75 mg total) by mouth 2 times daily as needed. Nati riley Tizanidine HCl 2 MG oral Tablet 12-22 00:00: 00 Yes [id number] 101748 2mg QD Take 1 tablet (2 mg total) by mouth nightly as needed. Nati riley LISINOPRIL- HCTZ 20-12.5 MG oral Tablet 12-22 00:00: 00 01-25 00:00 :00 No [id number] 1{tbl} Take 1 tablet by mouth daily. Nati riley Cyclobenzap rine HCl 10 MG oral Tablet 12-08 00:00: 00 12-22 00:00 :00 No 10mg Take 1 tablet (10 mg total) by mouth 2 times daily. Nati riley Naproxen 500 MG oral Tablet 12-08 00:00: 00 12-22 00:00 :00 No 500mg Take 1 tablet (500 mg total) by mouth 2 times daily. Nati riley LISINOPRIL- HCTZ 20-12.5 MG oral Tablet 12-03 00:00: 00 12-22 00:00 :00 No Nati riley Vital Signs Vital Name Observation Time Observation Value Comments S ource Body height 2023-02-24 13:50:00 170.2 cm Sigrid Gonzalez - External Body weight 2023-02-24 13:50:00 93.441 kg Sigrid Gonzalez - External BMI 2023-02-24 13:50:00 32.26 kg/m2 Sigrid Gonzalez - External Systolic blood pressure 2023-01-25 18:39:00 145 mm[Hg] Nati chen - External Diastolic blood pressure 2023-01-25 18:39:00 90 mm[Hg] Nati chen - External Heart rate 2023-01-25 18:24:00 85 /min Maicol Gonzalez - External Body temperature 2023-01-25 18:24:00 36.61 Nona Nati Seybold - External Respiratory rate 2023-01-25 18:24:00 15 /min Nati Seybold - External Body height 2023-01-25 18:24:00 170.2 cm Sigrid ey Seybold - External Body weight 2023-01-25 18:24:00 93.441 kg Sigrid ey Seybold - External BMI 2023-01-25 18:24:00 32.26 kg/m2 Sigrid ey Seybold - External Oxygen saturation in Arterial blood by Pulse oximetry 2023-01-25 18:24:00 99 /min Nati Seybo ld - External Body height 2023-01-19 17:40:00 170.2 cm Sigrid ey Seybold - External Body weight 2023-01-19 17:40:00 91.808 kg Sigrid ey Seybold - External BMI 2023-01-19 17:40:00 31.70 kg/m2 Sigrid ey Seybold - External Systolic blood pressure 2022-12-22 21:33:00 150 mm[Hg] Nati Seybo ld - External Diastolic blood pressure 2022-12-22 21:33:00 90 mm[Hg] Nati Seybo ld - External Heart rate 2022-12-22 21:06:00 96 /min Neeraj y Seybold - External Body temperature 2022-12-22 21:06:00 36.61 Nona Nati Seybold - External Respiratory rate 2022-12-22 21:06:00 20 /min Nati Seybold - External Body height 2022-12-22 21:06:00 170.2 cm Sigrid ey Seybold - External Body weight 2022-12-22 21:06:00 87.998 kg Sigrid ey Seybold - External BMI 2022-12-22 21:06:00 30.38 kg/m2 Sigrid ey Seybold - External Oxygen saturation in Arterial blood by Pulse oximetry 2022-12-22 21:06:00 97 /min Nati Odomo ld - External Encounters Start Date/Time End Date/Time Encounter Type Admission Type Attending [facility] Care Department Encounter ID Source 2023-12-02 00:00:00 2023-12-02 00:00:00 Outpatient SYED KENYON [id number] Nati Cordobaybanastacio 2023-05-17 08:30:00 2023-05-17 08:30:00 Outpatient PREZAS, SYED ARRIETA NATI [id number] Nati Cordobaybanastacio 2023-05-06 10:45:00 2023-05-06 10:45:00 Outpatient PREZAS, SYED ARRIETA NATI [id number] Nati Cordob[facility]acio 2023-04-27 13:30:00 2023-04-27 13:30:00 Outpatient PREZAS, SYED ARRIETA NATI [id number] [facility]23-[facility]-15 00:00:00 2023-03-15 00:00:00 Outpatient NATI ARRIETA [id number] [facility] 2023-03-10 00:00:00 2023-03-10 00:00:00 Outpatient PREZAS, SYED NAT[facility]ETA [id number] [facility] 2023-03-08 00:00:00 2023-03-08 00:00:00 Outpatient PASCALE, DEYSI NATI ARRIETA [id number] [facility] 2023-03-05 00:00:00 2023-03-05 00:00:00 Outpatient PASCALE, DEYSI ARRIETA [id number] [facility] 2023-03-02 13:30:00 2023-03-02 13:30:00 Outpatient MATY, SUNIL NATI ARRIETA [id number] [facility] 2023-02-24 09:00:00 2023-02-24 09:00:00 Outpatient PASCALE, DEYSI NATI ARRIETA [id number] [facility] 2023-02-17 13:00:00 2023-02-17 13:00:00 Outpatient NAT[facility]RIETA [id number] [facility] 2023-02-10 00:00:00 2023-02-10 00:00:00 Outpatient PREZAS, SYED NATI ARRIETA [id number] [facility] 2023-02-06 00:00:00 2023-02-06 00:00:00 Outpatient PREZAS, SYED NATI ARRIETA [id number] [facility] 2023-02-04 00:00:00 2023-02-04 00:00:00 Outpatient PREZAS, SYED NATI ARRIETA [id number] [facility] 2023-01-25 14:00:00 2023-01-25 14:00:00 Outpatient PREZAS, SYED NATI ARRIETA [id number] [facility] 2023-01-19 13:00:00 2023-01-19 13:00:00 Outpatient MATY, SUNIL NATI ARRIETA [id number] [facility] 2023-01-19 00:00:00 2023-01-19 00:00:00 Outpatient NATI ARRIETA [id number] [facility] 2023-01-16 00:00:00 2023-01-16 00:00:00 Outpatient PREZAS, SYED NATI ARRIETA [id number] [facility] 2023-01-14 00:00:00 2023-01-14 00:00:00 Outpatient PREZAS, SYED NATI ARRIETA [id number] [facility] 2023-01-12 08:05:00 2023-01-12 08:05:00 Outpatient LAB90 NATI ARRIETA [id number] [facility] 2023-01-01 00:00:00 2023-01-01 00:00:00 Outpatient PREZAS, SYED NATI ARRIETA [id number] [facility] 2022-12-22 16:30:00 2022-12-22 16:30:00 Outpatient PREZAS, SYED NATI ARRIETA [id number] [facility] 2022-12-21 00:00:00 2022-12-21 00:00:00 Outpatient PREZAS, SYED ARRIETA [id number] [facility]
[2024-05-09] MEDS ORDERED: ALBUTEROL 2.5 MG/3 ML NEB SOL ONE (08:42)
[2024-05-09] MEDS ORDERED: IPRATROPIUM BROM 0.5MG/2.5ML ONE (08:42)
[2024-05-09] MEDS ORDERED: KETOROLAC 30 MG/ML INJ ONE (08:43)
[2024-05-09 09:05] LABS: Absolute Eosinophils 0.1 K/uL (0-0.5); Absolute Lymphocytes (CBC) 0.5 K/uL (0.7-4.9); Absolute Monocytes 0.7 K/uL (0.1-1.3); Absolute Neutrophil 5.7 K/uL (1.8-8.0); Basophils % 0.3 % (0-1.3); Eosinophils % 1.4 % (0-4.4); Hematocrit 49.3 % (39.6-49.0); Hemoglobin 16.7 g/dL (13.6-17.9); MCH 30.2 pg (27.0-35.0); MCHC 33.9 g/dL (32.0-36.0); MCV 88.9 fL (80-100); MPV 9.6 fL (7.6-11.3); Monocytes % 10.6 % (3.3-12.3); Neutrophils % 80.7 % (41.7-73.7); Platelets 215 thou/uL (152-406); RBC Red Blood Cell Count 5.55 M/uL (4.33-5.43); Red Cell Distribution Width 13.1 % (12.1-15.2)
[2024-05-09 09:24] LABS: SARS-CoV-2 Antigen CONTROL BLUE LINE VIS/BG OK; SARS-CoV-2 Antigen Rapid Res Negative (Negative)
[2024-05-09 09:38] LABS: ALT/SGPT 75 U/L (16-61); AST/SGOT 34 U/L (15-37); Albumin 3.9 g/dL (3.4-5.0); Alkaline Phosphatase 77 U/L (45-117); BUN Blood Urea Nitrogen 13 mg/dL (7-18); Bicarbonate 28 mEq/L (21-32); Bilirubin Total 0.3 mg/dL (0.2-1.0); Globulin 3.8 g/dL (2.3-3.5); Glomerular Filtration Rate 76 ml/min (=/>90); Glucose Level 135 mg/dL (74-106); Protein, Total 7.7 g/dL (6.4-8.2); Sodium Level 134 mEq/L (136-145); Troponin High Sensitivity 32.3 pg/mL (<58.9)
[2024-05-09 09:41] LABS: Bilirubin Direct < 0.2 mg/dL (0-0.2); Bilirubin Indirect, Calculated 0.1 mg/dL (0.2-0.8)
--- NOTE | 2024-05-09 10:17 | RAD REPORT ---
EXAMINATION: ONE VIEW CHEST XR CLINICAL INDICATION: CHEST CONGESTION TECHNIQUE: Frontal chest projection is submitted. Examination is limited by patient positioning and t echnique. COMPARISON: No prior exam. FINDINGS: Bilateral interstitial lung opacities, greater on the right favoring infection/pneumonia. The heart i s upper limit of normal in size. No displaced fractures identified.
--- NOTE | 2024-05-09 11:09 | ER ---
Nurse's Notes [facility] Name: Jesse Beatty Age: 49 yrs Sex: Male : 1975 Arrival Date: 05/09/2024 Time: 08:07 Bed 14 Private MD: Diagnosis: Influenza due to identified novel influenza A virus;Community-acquired pneumonia Presentation: 05/09 08:20 Chief complaint: Painful cough, congestion, headache, sore throat, body aches, and hb subjective fever x 2 days. Coronavirus screen: Client presents with at least one sign or symptom that may indicate coronavirus-19. Provider contacted for isolation considerations. Ebola Screen: No symptoms or risks identified at this time. Initial Sepsis Screen: Does the patient meet any 2 criteria? No. Patient's initial sepsis screen is negative. Does the patient have a suspected source of infection? No. Patient's initial sepsis screen is negative. Risk Assessment: Do you want to hurt yourself or someone else? Patient reports no desire to harm self or others. Onset of symptoms was May 08, 2024. 08:20 Method Of Arrival: Ambulatory hb 08:20 Acuity: SENDY 3 hb Historical: - Allergies: 08:22 No Known Allergies; hb - Home Meds: 08:22 Lisinopril Oral [Active]; Hydrochlorothiazide Oral [Active]; hb - PMHx: 08:22 Enlarged Heart; Hypertension; Kidney stones; hb - PSHx: 08:22 None; hb - Immunization history:: Adult Immunizations up to date. - Infectious Disease History:: Denies. - Social history:: Smoking status: Patient denies any tobacco usage or history of. Screenin:57 [facility] ED Fall Risk Assessment (Adult) History of falling in the last 3 months, kc6 including since admission No falls in past 3 months (0 pts) Confusion or Disorientation No (0 pts) Intoxicated or Sedated No (0 pts) Impaired Gait No (0 pts) Mobility Assist Device Used No (0 pt) Altered Elimination No (0 pt) Score/Fall Risk Level 0 - 2 = Low Risk Oriented to surroundings, Maintained a safe environment, Educated pt \T\ family on fall prevention, incl call for assistance when getting out of bed. Abuse screen: Denies threats or abuse. Denies injuries from another. Nutritional screening: No deficits noted. Tuberculosis screening: No symptoms or risk factors identified. Assessment: 09:27 General: Appears in no apparent distress. uncomfortable, well groomed, well developed, kc6 Behavior is calm, cooperative, appropriate for age, Reports chills for 2-3 days, fever for 2-3 days, feeling ill for 2-3 days, fatigue for 2-3 days. Neuro: Level of Consciousness is awake, alert, obeys commands, Oriented to person, place, time, situation, Appropriate for age Reports headache. Cardiovascular: Denies chest pain, Heart tones S1 S2 present Capillary refill < 3 seconds Rhythm is sinus rhythm with unifocal PVCs. Respiratory: Reports cough that is productive, pain with cough pain with movement pain with respiration Airway is patent Trachea midline Respiratory effort is even, unlabored, Respiratory pattern is regular, symmetrical. GI: No signs and/or symptoms were reported involving the gastrointestinal system. : No signs and/or symptoms were reported regarding the genitourinary system. EENT: Reports nasal congestion pain when swallowing. Derm: No signs and/or symptoms reported regarding the dermatologic system. Skin is intact, is healthy with good turgor, Skin is pink, warm \T\ dry. Musculoskeletal: No signs and/or symptoms reported regarding the musculoskeletal system. Circulation, motion, and sensation intact. Range of motion: intact in all extremities. 10:35 Reassessment: Patient appears in no apparent distress at this time. No changes from kc6 previously documented assessment. Patient and/or family updated on plan of care and expected duration. Pain level reassessed. Patient is alert, oriented x 3, equal unlabored respirations, skin warm/dry/pink. Vital Signs: 08:20 BP 164 / 114; Pulse 82; Resp 18; Temp 98.9(O); Pulse Ox 92% on R/A; Weight 92.99 kg; hb Height 5 ft. 7 in. ; Pain 7/10; 09:27 BP 176 / 111; Pulse 87; Resp 18 S; Pulse Ox 94% on R/A; kc6 10:35 BP 156 / 98; Pulse 71; Resp 16 S; Pulse Ox 93% on R/A; kc6 08:20 Body Mass Index 32.11 (92.99 kg, 170.18 cm) hb 08:20 Pain Scale: Adult hb ED Course: 08:10 Patient arrived in ED. ra3 08:20 [place]kington, Wallace, MD is Attending Physician. rt 08:22 Triage completed. hb 08:24 Arm band placed on. hb 08:26 Chelo Brower RN is Primary Nurse. [facility] 08:56 Patient has correct armband on for positive identification. Bed in low position. Call richmond light in reach. Side rails up X 1. site monitor on. Pulse ox on. NIBP on. Door closed. Noise minimized. Lights dimmed. Warm blanket given. Pillow given. 08:56 Initial lab(s) drawn, by ED staff, sent to lab. EKG done, by ED staff, reviewed by Wallace Fabian MD COVID swab sent to lab. Flu and/or RSV swab sent to lab. Initial Neb Treatment Given as ordered Patient was instructed and evaluated on procedure Patient tolerated procedure well without adverse effect. Inserted saline lock: 20 gauge in left forearm, using aseptic technique. Blood collected. Flushed with 10 mL NS. Patient maintains SpO2 saturation greater than 95% on room air. 09:48 Chest Single View In Process Unspecified. EDMS 11:18 No provider procedures requiring assistance completed. IV discontinued, intact, ld1 bleeding controlled, No redness/swelling at site. Administered Medications: 08:56 Drug: DuoNeb Nebulize (3:1) (2.5 mg - 0.5 mg) 3 ml Nebulizer once Route: Nebulizer; [facility] 08:56 Drug: Ketorolac IVP 15 mg IVP once Route: IVP; Site: left forearm; [facility] Medication: 11:18 VIS not applicable for this client. ld1 Outcome: 11:08 Discharge ordered by . rt 11:18 Discharged to home ambulatory, ld1 11:18 Condition: stable 11:18 Discharge instructions given to patient, Instructed on discharge instructions, follow up and referral plans. Demonstrated understanding of instructions, follow-up care, medications, Prescriptions given X 3, 11:18 Patient left the ED. ld1 Signatures: Dispatcher [employer] EDMS Radha Vogel RN RN hb Sims, Lauren, RN RN ld1 Chelo Brower, Wallace Paez RN, MD MD rt Mary Beth Velez ra3
--- NOTE | 2024-05-09 11:09 | EDPHYS ---
Physician Documentation [facility] Zoey Name: Jesse Beatty Age: 49 yrs Sex: Male : 1975 Arrival Date: 05/09/2024 Time: 08:07 Bed 14 Private MD: ED Physician Wallace Fabian HPI: 05/09 08:35 This 49 yrs old Male presents to ER via Ambulatory with complaints of Chest Congestion, rt Cold Symptoms, Painful Cough. 08:35 Patient presents to the ED with 1 day of cough, chest pain with coughing as well as rt difficulty breathing and generalized bodyaches. Patient took Mucinex, Tylenol to no relief. Denies other acute complaints at this time, symptoms are moderate in severity, no other aggravating or alleviating factors.. Historical: - Allergies: 08:22 No Known Allergies; hb - Home Meds: 08:22 Lisinopril Oral [Active]; Hydrochlorothiazide Oral [Active]; hb - PMHx: 08:22 Enlarged Heart; Hypertension; Kidney stones; hb - PSHx: 08:22 None; hb - Immunization history:: Adult Immunizations up to date. - Infectious Disease History:: Denies. - Social history:: Smoking status: Patient denies any tobacco usage or history of. ROS: 08:35 Abdomen/GI: Negative for abdominal pain, nausea, vomiting, diarrhea, and constipation, rt MS/Extremity: Negative for injury and deformity, Skin: Negative for injury, rash, and discoloration, 08:35 Constitutional: Positive for body aches, Negative for fever, 08:35 Respiratory: Positive for cough, shortness of breath, Exam: 08:35 Constitutional: This is a well developed, well nourished patient who is awake, alert, rt and in no acute distress. Head/Face: Normocephalic, atraumatic. Chest/axilla: Normal chest wall appearance and motion. Nontender with no deformity. No lesions are appreciated. Cardiovascular: Regular rate and rhythm with a normal S1 and S2. No gallops, murmurs, or rubs. Normal PMI, no JVD. No pulse deficits. Respiratory: Lungs have equal breath sounds bilaterally, clear to auscultation and percussion. No rales, rhonchi or wheezes noted. No increased work of breathing, no retractions or nasal flaring. Abdomen/GI: Soft, non-tender, with normal bowel sounds. No distension or tympany. No guarding or rebound. No evidence of tenderness throughout. Skin: Warm, dry with normal turgor. Normal color with no rashes, no lesions, and no evidence of cellulitis. MS/ Extremity: Pulses equal, no cyanosis. Neurovascular intact. Full, normal range of motion. Neuro: Awake and alert, GCS 15, oriented to person, place, time, and situation. Cranial nerves II-XII grossly intact. Motor strength 5/5 in all extremities. Sensory grossly intact. Cerebellar exam normal. Normal gait. 08:50 ECG was reviewed by the Attending Physician. rt Vital Signs: 08:20 BP 164 / 114; Pulse 82; Resp 18; Temp 98.9(O); Pulse Ox 92% on R/A; Weight 92.99 kg; hb Height 5 ft. 7 in. ; Pain 7/10; 09:27 BP 176 / 111; Pulse 87; Resp 18 S; Pulse Ox 94% on R/A; kc6 10:35 BP 156 / 98; Pulse 71; Resp 16 S; Pulse Ox 93% on R/A; kc6 08:20 Body Mass Index 32.11 (92.99 kg, 170.18 cm) hb 08:20 Pain Scale: Adult hb MDM: 08:22 Medical Screening Exam initiated rt 11:38 Differential Diagnosis: Other Influenza, bronchospasm, COVID, pneumonia. Data reviewed: rt vital signs, nurses notes, lab test result(s), radiologic studies. Consideration of Admission/Observation Escalation of care including admission/observation considered. No significant hypoxia, symptoms of breathing treatment in the ED, no clinical signs or symptoms of sepsis, does not require mission for this time.. I considered the following discharge prescriptions or medication management in the emergency department Medications were administered in the Emergency Department. See MAR. Independent interpretation of the following test(s) in the Emergency Department X-Ray: My interpretation is Right lower lobe consolidation seen on interpretation of x-ray images. Test considered but Not performed: CT: Low suspicion for PE, CT angiogram not indicated. Care significantly affected by the following chronic conditions: Hypertension. Counseling: I had a detailed discussion with the patient and/or guardian regarding the historical points, exam findings, and any diagnostic results supporting the discharge/admit diagnosis, lab results, radiology results, the need for outpatient follow up, to return to the emergency department if symptoms worsen or persist or if there are any questions or concerns that arise at home. Response to treatment: the patient's symptoms have markedly improved after treatment. 05/09 09:02 Order name: Basic Metabolic Panel EDMS 05/09 09:02 Order name: Liver (Hepatic) Function EDMS 05/09 09:02 Order name: Troponin High Sensitivity EDMS 05/09 09:02 Order name: SARS-COV-2 Antigen Rapid EDMS 05/09 09:02 Order name: CBC with Automated Diff EDMS 05/09 09:02 Order name: Influenza Screen (A EDMS 05/09 09:07 Order name: CBC with Automated Diff; Complete Time: 10:21 EDMS 05/09 09:24 Order name: SARS-COV-2 Antigen Rapid; Complete Time: 10:21 EDMS 05/09 09:25 Order name: Influenza Screen (A ; Complete Time: 10:21 EDMS 05/09 09:41 Order name: Basic Metabolic Panel; Complete Time: 10:21 EDMS 05/09 09:41 Order name: Liver (Hepatic) Function; Complete Time: 10:21 EDMS 05/09 09:41 Order name: Troponin High Sensitivity; Complete Time: 10:21 EDMS 05/09 09:35 Order name: Chest Single View EDMS 05/09 10:17 Order name: RAD; Complete Time: 10:21 EDMS 05/09 08:30 Order name: EKG; Complete Time: 08:31 rt 05/09 09:31 Order name: EKG Electrocardiogram EDMS 05/09 08:30 Order name: Cardiac monitoring; Complete Time: 08:56 rt 05/09 08:30 Order name: EKG - Nurse/Tech; Complete Time: 08:56 rt 05/09 08:30 Order name: IV Saline Lock; Complete Time: 08:56 rt 05/09 08:30 Order name: Labs collected and sent; Complete Time: 08:56 rt 05/09 08:30 Order name: O2 Per Protocol; Complete Time: 08:40 rt 05/09 08:30 Order name: O2 Sat Monitoring; Complete Time: 08:40 rt EC:50 Rate is 75 beats/min. Rhythm is regular, Normal Sinus Rhythm with Occasional PVCs. QRS rt [place] is Normal. GA interval is normal. QRS interval is normal. QT interval is normal. No Q waves. Clinical impression: NSR w/ Non-specific ST/T Changes. Administered Medications: 08:56 Drug: DuoNeb Nebulize (3:1) (2.5 mg - 0.5 mg) 3 ml Nebulizer once Route: Nebulizer; kc6 08:56 Drug: Ketorolac IVP 15 mg IVP once Route: IVP; Site: left forearm; kc6 Disposition Summary: 05/09/24 11:08 Discharge Ordered Notes: Location: Home rt Problem: new rt Symptoms: have improved rt Condition: Stable rt Diagnosis - Influenza due to identified novel influenza A virus rt - Community-acquired pneumonia rt Followup: rt - With: Private Physician - When: 2 - 3 days - Reason: Discharge Instructions: - Discharge Summary Sheet rt - Community-Acquired Pneumonia, Adult rt - Influenza, Adult, [id number] rt Forms: - Medication Reconciliation Form rt - Antibiotic Education rt - Prescription Opioid Use rt - Patient Portal Instructions rt - Leadership Thank You Letter rt Prescriptions: - azithromycin 250 mg Oral tablet - take 1 dose pack ORAL route as directed on dose pack take 250 for days 2-5; 1 rt Pack; Refills: 0, Product Selection Permitted - albuterol sulfate 90 mcg/actuation Inhalation HFA Aerosol Inhaler - inhale 2 inhalation INHALATION route once; 2 Each; Refills: 0, Product rt Selection Permitted - Prednisone 20 mg Oral Tablet - take 2 tablets ORAL route once daily for 5 days; 10 tablet; Refills: 0, Product rt Selection Permitted Signatures: Dispatcher [employer] Radha Stoner RN RN hb Campbell, Kaitlyn, RN RN kc6 Wallace Fabian MD MD rt
--- NOTE | 2024-05-11 11:59 | EKG ---
Test Date: 2024-05-09 Test Time: 08:46:55 Nylon Operator: KANNAN MEASUREMENT RESULTS: Intervals: Rate: 75 CO: 140 QRSD: 90 QT: 402 QTc: 448 [place]: P: 1 CO: 140 QRS: -4 T: -23 INTERPRETIVE STATEMENTS: Sinus rhythm with occasional premature ventricular complexes Moderate voltage criteria for LVH, may be normal variant ST & T wave abnormality, consider inferior ischemia Abnormal ECG Compared to ECG 05/31/2009 22:01:12 Ventricular premature complex(es) now present Left ventricular hypertrophy now present ST (T wave) deviation now present Possible ischemia now present Electronically Signed On 05-11-24 11:57:06 SORT LINE WORKER by Velasquez Vang
[2024-05-12 01:17] VITALS: BP 156/98; TEMP 98.9; O2SAT 93
== END 2024-05-09 11:18 | disposition home or self-care (01) ==
LOC: ER 08:07
DX: J10.1 Influenza due to other identified influenza virus with other respiratory manifestations (principal); J18.9 Pneumonia, unspecified organism; Z11.52 Encounter for screening for COVID-19; I10 Essential (primary) hypertension
CPT/HCPCS: 93005; 85025; 80048; 36415; 80076; 84484; 87804 ×2; 71045; 94640; 96374; 99285; 87811; J7613; J7644